=== PATIENT | female | born 1995 | race Two or more races ===

== ENCOUNTER → 2018-03-30 | Outpatient (CLI) | payer MEDICAID | LOC: FIMAGING 12:10 | PROVIDERS: ATTEND Midwife | DX: Z34.92 Encounter for supervision of normal pregnancy, unspecified, second trimester (principal); Z3A.20 20 weeks gestation of pregnancy ==

== ENCOUNTER → 2018-04-27 | Outpatient (CLI) | payer MEDICAID | LOC: FIMAGING 13:46 | PROVIDERS: ATTEND Midwife | DX: Z34.82 Encounter for supervision of other normal pregnancy, second trimester (principal); Z3A.24 24 weeks gestation of pregnancy ==

== ENCOUNTER → 2018-05-25 | Outpatient (CLI) | payer MEDICAID | LOC: FIMAGING 14:09 | PROVIDERS: ATTEND Midwife | DX: Z34.93 Encounter for supervision of normal pregnancy, unspecified, third trimester (principal); Z3A.28 28 weeks gestation of pregnancy ==

== ENCOUNTER 2018-11-13 16:58 | Emergency (ER) | payer MEDICAID | END 2018-11-13 19:48 | disposition home or self-care (01) ==